=== PATIENT | male | born 1940 | race Caucasian/White ===

== ENCOUNTER 2019-12-04 07:30 | Inpatient (IN) ==
[2019-12-04] MEDS ORDERED: GLUCAGON 1 MG VIAL IM PRN (12:36)
[2019-12-04] MEDS ORDERED: DEXTROSE 10% 250 ML BAG IV PRN (12:36)
[2019-12-04 13:11] LABS: Basophils % 0.4 % (0.0-0.8); Eosinophils # 0.1 10*3/uL (0.0-0.87); Eosinophils % 0.5 % (0.00-10.9); Hematocrit 45.3 VOL% (42.0-52.0); Hemoglobin 14.7 GM/DL (14.0-18.0); Immature Granulocytes % 0.3 %; Immature Granulocytes Absolute 0.03 #; Lymphocytes # 1.7 10*3/uL (1.4-4.0); Lymphocytes % 17.5 % (21.2-54.2); Mean Corpuscular HGB Conc 32.5 GM/DL (32-36); Mean Corpuscular Volume 88.5 FL (87-102); Mean Platelet Volume 10.1 FL (9.6-12.0); Monocytes % 4.3 % (1.7-12.7); Platelet Count 218 T/CUMM (130-400); Red Blood Count 5.12 MC/CUMM (3.8-5.5); Red Cell Distribution Width 12.4 % (9.3-17.3); White Blood Count 9.6 T/CUMM (4-12)
[2019-12-04 13:27] LABS: Albumin 3.6 G/DL (3.4-5.0); Bilirubin,Total 0.6 MG/DL (0.2-1.0); Calcium 9.1 MG/DL (8.5-10.1); Osmolality,Calculated 268.4 MOS/KG (273-304); Total Protein 7.5 G/DL (6.4-8.3)
[2019-12-04] MEDS ORDERED: METHOCARBAMOL 500 MG TABLET PO PRN (13:47)
[2019-12-04] MEDS ORDERED: MORPHINE 4 MG/1 ML VIAL IV PRN (13:48)
[2019-12-04] MEDS ORDERED: ZALEPLON 5 MG CAPSULE PO PRN (13:49)
[2019-12-04 13:50] LABS: ABG Base Excess -0.1 MMOL/L (-2.5-2.5); ABG HCO3 24.3 MMOL/L (20-26); ABG Oxygen Saturation 96.8 % (95-100); ABG PCO2 36.3 MM HG (35-48); ABG PH 7.425 (7.35-7.45); ABG PO2 80.8 MM HG (80-95); ABG TCO2 20.2 MMOL/L (23-27)
[2019-12-04] MEDS: CHLORHEXIDINE 4% SOLN 118 ML BOTTLE TOP SCH ×2 (15:43→22:27)
[2019-12-04] MEDS ORDERED: LOPERAMIDE 2 MG CAPSULE PO PRN (21:28)
[2019-12-04] MEDS: CHLORHEXIDINE 0.12% ORAL RINSE 60 ML BOTTLE SWISH/SPIT SCH (22:28)
[2019-12-05] MEDS ORDERED: VANCOMYCIN 1,000 MG VIAL ONE (04:21)
[2019-12-05] MEDS ORDERED: PAPAVERINE 60 MG/2 ML VIAL ONE (04:21)
[2019-12-05] MEDS ORDERED: VANCOMYCIN 500 MG VIAL ONE (04:21)
[2019-12-05] MEDS: CHLORHEXIDINE 4% SOLN 118 ML BOTTLE TOP SCH ×2 (05:30→16:15)
[2019-12-05] MEDS ORDERED: DIAZEPAM 5 MG TABLET PO ONE (06:00)
[2019-12-05] MEDS ORDERED: FAMOTIDINE 20 MG TABLET PO ONE (06:00)
[2019-12-05] MEDS ORDERED: CEFUROXIME INJ 1,500 MG in SYRINGE 1 EACH IV ONE (06:00)
[2019-12-05] MEDS ORDERED: PHENYLEPHRINE DRIP 20 MG/250 ML PREMIX IV ONE (06:10)
[2019-12-05] MEDS ORDERED: HEPARIN/NACL 0.9% 2 UNITS/ML 500 ML IV ONE (06:10)
[2019-12-05] MEDS ORDERED: NITROGLYCERIN DRIP 50 MG/250 ML BOTTLE IV ONE (06:11)
[2019-12-05] MEDS ORDERED: AMINOCAPROIC ACID 5,000 MG/20 ML VIAL ONE (06:11)
[2019-12-05] MEDS ORDERED: SUFentanil 250 MCG/5 ML AMP ONE (06:11)
[2019-12-05] MEDS ORDERED: MIDAZOLAM 10 MG/2 ML VIAL ONE (06:11)
[2019-12-05] MEDS ORDERED: MINERAL OIL/PETROLATUM OPH OINT 3.5 GM TUBE ONE (06:12)
[2019-12-05] MEDS: CHLORHEXIDINE 0.12% ORAL RINSE 60 ML BOTTLE SWISH/SPIT SCH ×3 (06:25→21:44)
[2019-12-05 07:39] LABS: ABG Base Excess -0.7 MMOL/L (-2.5-2.5); ABG HCO3 23.9 MMOL/L (20-26); ABG PCO2 37.4 MM HG (35-48); ABG PH 7.408 (7.35-7.45); ABG TCO2 20.6 MMOL/L (23-27); Glucose Heart Surgery 129 MG/DL (74-106); Hematocrit Heart Surgery 39.9 PERCENT (42-52); Ionized Calcium Arterial 1.17 MMOL/L (1.21-1.46); PCO2 Patient Temp Arterial 37.4 MMHG; PH Patient Temp Arterial 7.408; Patient Temperature 37 CELCIUS; Potassium Heart/CVR 3.6 MMOL/L (3.5-5.1); Sodium Heart/CVR 138 MMOL/L (135-145)
[2019-12-05] MEDS ORDERED: NITROPRUSSIDE 50 MG/2 ML VIAL ONE (08:40)
[2019-12-05] MEDS ORDERED: POTASSIUM CHLORIDE RIDER 100 ML IV ONE (08:40)
[2019-12-05] MEDS ORDERED: CALCIUM CHLORIDE 1,000 MG/10 ML SYRINGE IV ONE (08:40)
[2019-12-05] MEDS ORDERED: SODIUM BICARBONATE 50 MEQ/50 ML VIAL IV ONE ×2 (08:40→12:11)
[2019-12-05] MEDS ORDERED: PHENYLEPHRINE DRIP 40 MG/250 ML PREMIX IV ONE (08:40)
[2019-12-05] MEDS ORDERED: EPINEPHrine 1 MG/10 ML SYRINGE ONE (08:41)
[2019-12-05] MEDS ORDERED: ALBUMIN 5% 12.5 GM/250 ML VIAL IV ONE ×2 (08:42→08:53)
[2019-12-05] MEDS ORDERED: LIDOCAINE 100 MG/5 ML SYRINGE ONE (08:42)
[2019-12-05 08:54] LABS: Amorphous Crystals,Urine Occasional /HPF (Few); Apearance,Urine CLEAR (Clear); Bacteria,Urine Occasional /HPF (Few); Bilirubin,Urine Negative (Negative); Blood, Urine Small mg/dL (Negative); Glucose,Urine (UA) Negative (Negative); Ketones,Urine 20 mg/dL (Negative); Mucus,Urine Occasional /LPF (Occasional); Nitrite,Urine Negative (Negative); Protein,Urine Negative; RBC,Urine 7 /HPF (0-4); Squamous Epithelial Cell,Urine Occasional /HPF (0-10); Urine Color Yellow (Yellow); Urine Specific Gravity 1.016 (1.001-1.035); Urine Urobilinogen < 2.0 EU/DL (0.2-1.0)
[2019-12-05 08:58] LABS: Hematocrit Heart Surgery 32.4 PERCENT (42-52); Hemoglobin Heart Surgery 10.5 G/DL (14.0-18.0); PCO2 Patient Temp Venous 28.8 MM HG; PH Patient Temp Venous 7.496; PO2 Patient Temp Venous 38.9 MM HG; Potassium Heart/CVR 4.1 MMOL/L (3.5-5.1); VBG Base Excess -0.2 MEQ/L (0-4); VBG Oxygen Saturation 86.1 %; VBG PCO2 33.3 MMHG (41-51); VBG PH 7.451; VBG PO2 47.8 MMHG (17-40)
[2019-12-05 09:31] LABS: Hematocrit Heart Surgery 33.5 PERCENT (42-52); Hemoglobin Heart Surgery 10.9 G/DL (14.0-18.0); PCO2 Patient Temp Venous 30.2 MM HG; PH Patient Temp Venous 7.479; PO2 Patient Temp Venous 41.4 MM HG; Potassium Heart/CVR 3.8 MMOL/L (3.5-5.1); VBG Base Excess -0.4 MEQ/L (0-4); VBG Oxygen Saturation 89.1 %; VBG PCO2 36.6 MMHG (41-51); VBG PH 7.42; VBG PO2 54.4 MMHG (17-40)
[2019-12-05 10:04] LABS: Hematocrit Heart Surgery 35.8 PERCENT (42-52); Hemoglobin Heart Surgery 11.6 G/DL (14.0-18.0); PCO2 Patient Temp Venous 30.8 MM HG; PH Patient Temp Venous 7.47; PO2 Patient Temp Venous 43.3 MM HG; Potassium Heart/CVR 3.6 MMOL/L (3.5-5.1); VBG Base Excess -0.6 MEQ/L (0-4); VBG HCO3 23.8 MEQ/L (24-28); VBG Oxygen Saturation 89.9 %; VBG PCO2 37.3 MMHG (41-51); VBG PH 7.411; VBG PO2 56.8 MMHG (17-40)
[2019-12-05 10:32] LABS: Hematocrit Heart Surgery 35.7 PERCENT (42-52); Hemoglobin Heart Surgery 11.6 G/DL (14.0-18.0); PCO2 Patient Temp Venous 32.6 MM HG; PH Patient Temp Venous 7.471; PO2 Patient Temp Venous 45.9 MM HG; Potassium Heart/CVR 3.6 MMOL/L (3.5-5.1); VBG Base Excess 0.7 MEQ/L (0-4); VBG HCO3 24.9 MEQ/L (24-28); VBG Oxygen Saturation 89.8 %; VBG PCO2 37.7 MMHG (41-51); VBG PH 7.427; VBG PO2 56.3 MMHG (17-40)
[2019-12-05 11:00] LABS: Hematocrit Heart Surgery 34.5 PERCENT (42-52); Hemoglobin Heart Surgery 11.2 G/DL (14.0-18.0); PH Patient Temp Venous 7.463; PO2 Patient Temp Venous 45.5 MM HG; Potassium Heart/CVR 3.8 MMOL/L (3.5-5.1); VBG Base Excess 0.4 MEQ/L (0-4); VBG HCO3 24.6 MEQ/L (24-28); VBG Oxygen Saturation 89.4 %; VBG PCO2 38.1 MMHG (41-51); VBG PH 7.419; VBG PO2 55.8 MMHG (17-40)
[2019-12-05] MEDS ORDERED: THROMBIN TOPICAL (RECOMBINANT) 5,000 UNIT VIAL TOP ONE (11:21)
[2019-12-05 11:35] LABS: Hematocrit Heart Surgery 30.9 PERCENT (42-52); PCO2 Patient Temp Venous 34.9 MM HG; PH Patient Temp Venous 7.453; PO2 Patient Temp Venous 41.7 MM HG; Potassium Heart/CVR 4.2 MMOL/L (3.5-5.1); VBG Base Excess 0.8 MEQ/L (0-4); VBG HCO3 24.8 MEQ/L (24-28); VBG Oxygen Saturation 78.8 %; VBG PCO2 34.9 MMHG (41-51); VBG PH 7.453; VBG PO2 41.7 MMHG (17-40)
[2019-12-05] MEDS ORDERED: MANNITOL 100 GM/500 ML BAG IV ONE (12:10)
[2019-12-05] MEDS ORDERED: LIDOCAINE 2% 5 ML VIAL ONE ×2 (12:10→14:16)
[2019-12-05] MEDS ORDERED: ALBUMIN 25% 25 GM/100 ML VIAL IV ONE (12:11)
[2019-12-05] MEDS ORDERED: HEPARIN 10,000 UNIT/10 ML VIAL ONE (12:11)
[2019-12-05] MEDS ORDERED: MAGNESIUM SULFATE 5 GM/10 ML VIAL IV ONE (12:11)
[2019-12-05] MEDS ORDERED: methylPREDNISolone SOD SUC 1,000 MG/8 ML VIAL ONE (12:11)
[2019-12-05] MEDS ORDERED: PROTAMINE SULFATE 250 MG/25 ML VIAL IV ONE (12:11)
[2019-12-05] MEDS ORDERED: FUROSEMIDE 20 MG/2 ML VIAL ONE (12:11)
[2019-12-05] MEDS ORDERED: DEXTROSE 5% KCL 20 MEQ 40 MEQ/2,000 ML BAG IV ONE (12:11)
[2019-12-05 12:12] LABS: ABG Base Excess -2.2 MMOL/L (-2.5-2.5); ABG HCO3 21.7 MMOL/L (20-26); ABG Oxygen Saturation 98.4 % (95-100); ABG PCO2 33.9 MM HG (35-48); ABG PH 7.424 (7.35-7.45); ABG PO2 185.8 MM HG (80-95); ABG TCO2 22.7 MMOL/L (23-27); Glucose Heart Surgery 255 MG/DL (74-106); Hemoglobin Heart Surgery 9.8 G/DL (14.0-18.0); Ionized Calcium Arterial 1.24 MMOL/L (1.21-1.46); PCO2 Patient Temp Arterial 33.9 MMHG; PH Patient Temp Arterial 7.424; PO2 Patient Temp Arterial 185.8 MM HG; Patient Temperature 37 CELCIUS; Potassium Heart/CVR 3.5 MMOL/L (3.5-5.1); Sodium Heart/CVR 138 MMOL/L (135-145)
[2019-12-05] MEDS ORDERED: PROTAMINE SULFATE 50 MG/5 ML VIAL IV ONE ×3 (12:12→13:56)
[2019-12-05] MEDS: PHENYLEPHRINE DRIP 40 MG/250 ML PREMIX IV PRN (14:00)
[2019-12-05] MEDS: LACTATED RINGERS 250 ML IV PRN ×4 (14:00→16:56)
[2019-12-05] MEDS ORDERED: LIDOCAINE 1% 5 ML VIAL ONE (14:16)
[2019-12-05] MEDS ORDERED: CALCIUM CHLORIDE 1,000 MG/10 ML VIAL IV ONE (14:16)
[2019-12-05] MEDS ORDERED: ROCURONIUM 100 MG/10 ML VIAL IV ONE (14:17)
[2019-12-05] MEDS ORDERED: SODIUM CHLORIDE 0.9% 250 ML IV ONE (14:17)
[2019-12-05] MEDS ORDERED: AMIODARONE 150 MG/3 ML VIAL ONE (14:17)
[2019-12-05] MEDS ORDERED: LACTATED RINGERS 2,000 ML IV ONE (14:17)
[2019-12-05] MEDS ORDERED: ETOMIDATE 40 MG/20 ML VIAL IV ONE (14:17)
[2019-12-05] MEDS ORDERED: SODIUM CHLORIDE 0.9% 2,000 ML IV ONE (14:17)
[2019-12-05] MEDS ORDERED: SODIUM CHLORIDE 0.9% 100 ML IV ONE (14:17)
[2019-12-05] MEDS ORDERED: PHENYLEPHRINE 1 MG/10 ML SYRINGE IV ONE (14:17)
[2019-12-05] MEDS ORDERED: ePHEDrine 50 MG/ML VIAL ONE (14:17)
[2019-12-05] MEDS ORDERED: SEVOFLURANE 1 UNIT/15 MINUTE INH ONE (14:18)
[2019-12-05] MEDS ORDERED: MORPHINE 10 MG/1 ML VIAL IV PRN (14:26)
[2019-12-05] MEDS ORDERED: INSULIN REGULAR DRIP 100 ML IV SCH (14:26)
[2019-12-05] MEDS ORDERED: SODIUM CHLORIDE 0.45% 1,000 ML IV SCH ×2 (14:26)
[2019-12-05] MEDS ORDERED: ACETAMINOPHEN 650 MG SUPP RECTAL PRN (14:26)
[2019-12-05] MEDS ORDERED: ONDANSETRON 4 MG/2 ML VIAL IV PRN (14:26)
[2019-12-05] MEDS ORDERED: NITROPRUSSIDE 100 MG in DEXTROSE 5% 250 ML IV PRN (14:26)
[2019-12-05] MEDS ORDERED: VECURONIUM 10 MG VIAL IV PRN ×2 (14:26)
[2019-12-05] MEDS ORDERED: MAGNESIUM SULF RIDER 2 GM in PREMIX 1 EACH IV PRN (14:26)
[2019-12-05] MEDS ORDERED: MAGNESIUM SULF RIDER 4 GM in PREMIX 1 EACH IV PRN (14:26)
[2019-12-05] MEDS ORDERED: DEXTROSE 10% 250 ML BAG IV PRN ×2 (14:26)
[2019-12-05] MEDS ORDERED: INSULIN REGULAR 100 UNIT/ML IV ONE (14:26)
[2019-12-05] MEDS ORDERED: CALCIUM CHLORIDE 1,000 MG/10 ML SYRINGE IV PRN (14:26)
[2019-12-05] MEDS ORDERED: POTASSIUM CHLORIDE RIDER 10 MEQ in PREMIX 1 EACH IV PRN (14:26)
[2019-12-05] MEDS ORDERED: INSULIN REGULAR 100 UNIT/ML IV PRN (14:26)
[2019-12-05] MEDS ORDERED: MIDAZOLAM 10 MG/2 ML VIAL IV PRN (14:26)
[2019-12-05] MEDS ORDERED: CHLORHEXIDINE 4% SOLN 118 ML BOTTLE TOP PRN (14:26)
[2019-12-05] MEDS ORDERED: MIDAZOLAM 2 MG/2 ML VIAL IV PRN (14:26)
[2019-12-05 14:34] LABS: ABG Base Excess -3.9 MMOL/L (-2.5-2.5); ABG HCO3 21.1 MMOL/L (20-26); ABG Oxygen Saturation 99.5 % (95-100); ABG PCO2 36.9 MM HG (35-48); ABG PH 7.363 (7.35-7.45); ABG TCO2 19.4 MMOL/L (23-27); Glucose Heart Surgery 273 MG/DL (74-106); Hematocrit Heart Surgery 27.9 PERCENT (42-52); Potassium Heart/CVR 3.1 MMOL/L (3.5-5.1)
[2019-12-05 14:42] LABS: Basophils % 0.2 % (0.0-0.8); Eosinophils % 0.1 % (0.00-10.9); Hemoglobin 8.7 GM/DL (14.0-18.0); Immature Granulocytes % 0.8 %; Immature Granulocytes Absolute 0.16 #; Lymphocytes # 0.9 10*3/uL (1.4-4.0); Lymphocytes % 4.7 % (21.2-54.2); Mean Corpuscular HGB Conc 31.1 GM/DL (32-36); Mean Corpuscular Volume 92.1 FL (87-102); Mean Platelet Volume 10.3 FL (9.6-12.0); Monocytes % 4.4 % (1.7-12.7); Neutrophils % 89.8 % (38.7-73.9); Platelet Count 208 T/CUMM (130-400); Red Blood Count 3.04 MC/CUMM (3.8-5.5); Red Cell Distribution Width 12.7 % (9.3-17.3); White Blood Count 19.3 T/CUMM (4-12)
[2019-12-05] MEDS: POTASSIUM CHLORIDE RIDER 20 MEQ in PREMIX 1 EACH IV PRN ×5 (14:46→21:42)
[2019-12-05 14:53] LABS: INR 1.2; PT Patient Result 12.9 SECS (9.8-11.9); Partial Thromboplastin Time 29.6 SECS (23.9-33.8)
[2019-12-05 14:59] LABS: CKMB % 6.8 %
[2019-12-05 15:02] LABS: Troponin I 5.37 NG/ML (0.00-0.045)
[2019-12-05 15:06] LABS: Albumin 2.9 G/DL (3.4-5.0); Calcium 9.2 MG/DL (8.5-10.1); Total Protein 5.6 G/DL (6.4-8.3)
[2019-12-05 15:34] LABS: Band Neutrophils 4 % (0-10); Lymphocytes 3 % (20-55); Segmented Neutrophils 92 % (50-85); Total Cells Counted 100
[2019-12-05 15:35] LABS: Hypochromasia Slight; Platelet Estimate Normal
[2019-12-05] MEDS: SODIUM CHLORIDE 0.9% 1,000 ML IV SCH (16:15)
[2019-12-05 16:31] LABS: ABG Base Excess -5.8 MMOL/L (-2.5-2.5); ABG HCO3 19.6 MMOL/L (20-26); ABG Oxygen Saturation 98.7 % (95-100); ABG PCO2 38.5 MM HG (35-48); ABG PH 7.319 (7.35-7.45); ABG TCO2 18.3 MMOL/L (23-27); Glucose Heart Surgery 233 MG/DL (74-106); Hematocrit Heart Surgery 28.8 PERCENT (42-52); Hemoglobin Heart Surgery 9.3 G/DL (14.0-18.0); Potassium Heart/CVR 4.1 MMOL/L (3.5-5.1)
[2019-12-05 17:34] LABS: ABG Base Excess -6.3 MMOL/L (-2.5-2.5); ABG HCO3 19.2 MMOL/L (20-26); ABG Oxygen Saturation 97.7 % (95-100); ABG PCO2 40.1 MM HG (35-48); ABG TCO2 18.1 MMOL/L (23-27); Glucose Heart Surgery 211 MG/DL (74-106); Hematocrit Heart Surgery 30.9 PERCENT (42-52); Potassium Heart/CVR 4.5 MMOL/L (3.5-5.1)
[2019-12-05] MEDS: KETOROLAC 30 MG/1 ML VIAL IV SCH (18:43)
[2019-12-05 19:47] LABS: ABG Base Excess -3.9 MMOL/L (-2.5-2.5); ABG HCO3 21.2 MMOL/L (20-26); ABG Oxygen Saturation 97.2 % (95-100); ABG PCO2 40.8 MM HG (35-48); ABG PH 7.334 (7.35-7.45); ABG PO2 91.5 MM HG (80-95); ABG TCO2 19.7 MMOL/L (23-27); Glucose Heart Surgery 192 MG/DL (74-106); Hemoglobin Heart Surgery 10.7 G/DL (14.0-18.0); Potassium Heart/CVR 4.4 MMOL/L (3.5-5.1)
[2019-12-05] MEDS ORDERED: FUROSEMIDE 40 MG/4 ML VIAL IV ONE (20:32)
[2019-12-05] MEDS: CEFUROXIME INJ 1,500 MG in SYRINGE 1 EACH IV SCH (20:49)
[2019-12-05] MEDS: ALBUMIN 5% 12.5 GM in PREMIX 1 EACH IV PRN (22:16)
[2019-12-05] MEDS: MORPHINE 4 MG/1 ML VIAL IV PRN (22:20)
[2019-12-06 00:10] LABS: ABG Base Excess -1.6 MMOL/L (-2.5-2.5); ABG HCO3 21.8 MMOL/L (20-26); ABG Oxygen Saturation 97.8 % (95-100); ABG PCO2 31.8 MM HG (35-48); ABG PH 7.453 (7.35-7.45); ABG PO2 108.3 MM HG (80-95); ABG TCO2 22.7 MMOL/L (23-27); Glucose Heart Surgery 127 MG/DL (74-106); Hemoglobin Heart Surgery 10.5 G/DL (14.0-18.0)
[2019-12-06] MEDS: KETOROLAC 30 MG/1 ML VIAL IV SCH ×5 (00:27→23:45)
[2019-12-06] MEDS: POTASSIUM CHLORIDE RIDER 20 MEQ in PREMIX 1 EACH IV PRN ×2 (00:30→05:20)
[2019-12-06 01:11] LABS: Troponin I 4.67 NG/ML (0.00-0.045)
[2019-12-06 03:24] LABS: ABG HCO3 25.3 MMOL/L (20-26); ABG PCO2 29.2 MM HG (35-48); ABG PH 7.507 (7.35-7.45); ABG PO2 76.3 MM HG (80-95); ABG TCO2 20.4 MMOL/L (23-27); Glucose Heart Surgery 106 MG/DL (74-106); Hematocrit Heart Surgery 36.4 PERCENT (42-52); Hemoglobin Heart Surgery 11.8 G/DL (14.0-18.0); Potassium Heart/CVR 4.1 MMOL/L (3.5-5.1)
[2019-12-06 04:39] LABS: ABG Base Excess -0.2 MMOL/L (-2.5-2.5); ABG HCO3 21.8 MMOL/L (20-26); ABG Oxygen Saturation 97.1 % (95-100); ABG PCO2 26.9 MM HG (35-48); ABG PH 7.526 (7.35-7.45); ABG PO2 90.6 MM HG (80-95); ABG TCO2 22.6 MMOL/L (23-27); Glucose Heart Surgery 91 MG/DL (74-106); Hemoglobin Heart Surgery 9.9 G/DL (14.0-18.0)
[2019-12-06 05:00] LABS: Bilirubin,Direct 0.15 MG/DL (0.0-0.20); Bilirubin,Total 0.9 MG/DL (0.2-1.0); Calcium 8.8 MG/DL (8.5-10.1); Osmolality,Calculated 289.7 MOS/KG (273-304); Total Protein 5.8 G/DL (6.4-8.3)
[2019-12-06 05:01] LABS: Basophils % 0.2 % (0.0-0.8); Eosinophils # 0.1 10*3/uL (0.0-0.87); Eosinophils % 0.3 % (0.00-10.9); Hematocrit 29.4 VOL% (42.0-52.0); Hemoglobin 9.6 GM/DL (14.0-18.0); Immature Granulocytes % 0.6 %; Immature Granulocytes Absolute 0.11 #; Lymphocytes # 1.2 10*3/uL (1.4-4.0); Lymphocytes % 6.7 % (21.2-54.2); Mean Corpuscular HGB Conc 32.7 GM/DL (32-36); Mean Corpuscular Volume 85.5 FL (87-102); Mean Platelet Volume 11.3 FL (9.6-12.0); Monocytes % 5.5 % (1.7-12.7); Neutrophils % 86.7 % (38.7-73.9); Platelet Count 185 T/CUMM (130-400); Red Blood Count 3.44 MC/CUMM (3.8-5.5); Red Cell Distribution Width 15.6 % (9.3-17.3); White Blood Count 18.4 T/CUMM (4-12)
[2019-12-06 06:19] LABS: ABG Base Excess -1.9 MMOL/L (-2.5-2.5); ABG HCO3 23.3 MMOL/L (20-26); ABG Oxygen Saturation 97.7 % (95-100); ABG PCO2 41.2 MM HG (35-48); ABG PO2 122.9 MM HG (80-95); ABG TCO2 24.5 MMOL/L (23-27); Glucose Heart Surgery 155 MG/DL (74-106); Hemoglobin Heart Surgery 9.9 G/DL (14.0-18.0); Potassium Heart/CVR 4.7 MMOL/L (3.5-5.1)
[2019-12-06] MEDS ORDERED: GLUCAGON 1 MG VIAL IM PRN (07:14)
[2019-12-06] MEDS ORDERED: DEXTROSE 50% 25 GM/50 ML VIAL IV PRN (07:14)
[2019-12-06 09:06] LABS: Troponin I 4.41 NG/ML (0.00-0.045)
[2019-12-06] MEDS: ALBUMIN 5% 12.5 GM in PREMIX 1 EACH IV PRN (09:45)
[2019-12-06] MEDS: ASPIRIN EC 81 MG TABLET PO SCH (09:46)
[2019-12-06] MEDS: SODIUM CHLOR 0.45% KCL 20 MEQ 20 MEQ/1,000 ML BAG IV SCH (09:47)
[2019-12-06] MEDS: INSULIN REGULAR 100 UNIT/ML SUBCUT SCH ×5 (09:49→23:45)
[2019-12-06] MEDS: CHLORHEXIDINE 0.12% ORAL RINSE 60 ML BOTTLE SWISH/SPIT SCH ×2 (09:52→20:40)
[2019-12-06] MEDS: CEFUROXIME INJ 1,500 MG in SYRINGE 1 EACH IV SCH ×2 (09:59→20:40)
[2019-12-06] MEDS ORDERED: LACTATED RINGERS 1,000 ML IV PRN (10:13)
[2019-12-06] MEDS: PHENYLEPHRINE DRIP 40 MG/250 ML PREMIX IV PRN (10:22)
[2019-12-06 14:54] LABS: CKMB % 2.7 %
[2019-12-06 14:55] LABS: Troponin I 3.25 NG/ML (0.00-0.045)
[2019-12-07] MEDS: INSULIN REGULAR 100 UNIT/ML SUBCUT SCH ×6 (04:55→23:46)
[2019-12-07 04:59] LABS: Basophils % 0.1 % (0.0-0.8); Hematocrit 25.4 VOL% (42.0-52.0); Hemoglobin 7.7 GM/DL (14.0-18.0); Immature Granulocytes % 1.3 %; Immature Granulocytes Absolute 0.28 #; Lymphocytes # 0.8 10*3/uL (1.4-4.0); Lymphocytes % 3.9 % (21.2-54.2); Mean Corpuscular HGB Conc 30.3 GM/DL (32-36); Mean Corpuscular Volume 92.7 FL (87-102); Mean Platelet Volume 11.3 FL (9.6-12.0); Monocytes % 4.8 % (1.7-12.7); Neutrophils % 89.9 % (38.7-73.9); Platelet Count 127 T/CUMM (130-400); Red Blood Count 2.74 MC/CUMM (3.8-5.5); Red Cell Distribution Width 15.9 % (9.3-17.3); White Blood Count 21.6 T/CUMM (4-12)
[2019-12-07 05:22] LABS: Alanine Aminotransferase 16 U/L (16-61); Albumin 2.7 G/DL (3.4-5.0); Alkaline Phosphatase 38 U/L (45-117); Aspartate Amino Transferase 30 U/L (0-37); Bilirubin,Direct < 0.100 MG/DL (0.0-0.20); Blood Urea Nitrogen 33 MG/DL (7-18); Calcium 8.1 MG/DL (8.5-10.1); Estimated Glom Filtration Rate 92 ML/MIN; Glucose 150 MG/DL (74-106); Osmolality,Calculated 292.1 MOS/KG (273-304); Total Protein 5.5 G/DL (6.4-8.3)
[2019-12-07] MEDS: ENOXAPARIN 30 MG/0.3 ML SYRINGE SUBCUT SCH (05:52)
[2019-12-07] MEDS: KETOROLAC 30 MG/1 ML VIAL IV SCH ×4 (05:52→23:47)
[2019-12-07] MEDS ORDERED: SODIUM CHLORIDE 0.9% 1,000 ML IV PRN (06:20)
[2019-12-07 07:02] LABS: Band Neutrophils 1 % (0-10); Lymphocytes 1 % (20-55); Segmented Neutrophils 96 % (50-85); Total Cells Counted 100
[2019-12-07 07:04] LABS: Hypochromasia Slight; Microcytosis Slight; Platelet Estimate Normal
[2019-12-07] MEDS: SODIUM CHLOR 0.45% KCL 20 MEQ 20 MEQ/1,000 ML BAG IV SCH (08:06)
[2019-12-07] MEDS: ASPIRIN EC 81 MG TABLET PO SCH (08:06)
[2019-12-07] MEDS: CHLORHEXIDINE 0.12% ORAL RINSE 60 ML BOTTLE SWISH/SPIT SCH ×2 (08:07→20:30)
[2019-12-07] MEDS ORDERED: FUROSEMIDE 40 MG/4 ML VIAL IV ONE ×2 (08:28→11:00)
[2019-12-07 13:15] LABS: Hematocrit 31.6 VOL% (42.0-52.0); Hemoglobin 9.9 GM/DL (14.0-18.0)
[2019-12-07] MEDS: WARFARIN 5 MG TABLET PO SCH (18:05)
[2019-12-08] MEDS: MORPHINE 4 MG/1 ML VIAL IV PRN (02:12)
[2019-12-08 04:03] LABS: Basophils % 0.2 % (0.0-0.8); Eosinophils % 0.1 % (0.00-10.9); Hematocrit 30.3 VOL% (42.0-52.0); Hemoglobin 9.6 GM/DL (14.0-18.0); Immature Granulocytes % 0.6 %; Lymphocytes # 1.7 10*3/uL (1.4-4.0); Mean Corpuscular HGB Conc 31.7 GM/DL (32-36); Mean Corpuscular Volume 89.4 FL (87-102); Mean Platelet Volume 11.6 FL (9.6-12.0); Monocytes % 5.7 % (1.7-12.7); Neutrophils % 83.4 % (38.7-73.9); Platelet Count 131 T/CUMM (130-400); Red Blood Count 3.39 MC/CUMM (3.8-5.5); Red Cell Distribution Width 15.2 % (9.3-17.3); White Blood Count 16.8 T/CUMM (4-12)
[2019-12-08 04:28] LABS: Albumin 2.6 G/DL (3.4-5.0); Bilirubin,Direct 0.18 MG/DL (0.0-0.20); Bilirubin,Total 0.7 MG/DL (0.2-1.0); Calcium 7.9 MG/DL (8.5-10.1); Osmolality,Calculated 288.5 MOS/KG (273-304); Total Protein 5.4 G/DL (6.4-8.3)
[2019-12-08] MEDS: INSULIN REGULAR 100 UNIT/ML SUBCUT SCH ×5 (07:00→22:35)
[2019-12-08] MEDS: ENOXAPARIN 30 MG/0.3 ML SYRINGE SUBCUT SCH (07:01)
[2019-12-08] MEDS: KETOROLAC 30 MG/1 ML VIAL IV SCH ×3 (07:02→17:31)
[2019-12-08] MEDS ORDERED: LACTULOSE 20 GM/30 ML UDCUP PO ONE (08:10)
[2019-12-08] MEDS: SODIUM CHLOR 0.45% KCL 20 MEQ 20 MEQ/1,000 ML BAG IV SCH ×2 (08:29→11:41)
[2019-12-08] MEDS: POLYETHYLENE GLYCOL POWDER 17 GM PACK PO SCH (08:29)
[2019-12-08] MEDS: ASPIRIN EC 81 MG TABLET PO SCH (08:29)
[2019-12-08] MEDS: CHLORHEXIDINE 0.12% ORAL RINSE 60 ML BOTTLE SWISH/SPIT SCH ×2 (10:39→22:43)
[2019-12-08] MEDS ORDERED: ACETAMINOPHEN 325 MG TABLET PO PRN (10:50)
[2019-12-08] MEDS: WARFARIN 5 MG TABLET PO SCH (17:31)
[2019-12-09] MEDS: INSULIN REGULAR 100 UNIT/ML SUBCUT SCH ×3 (00:43→08:14)
[2019-12-09] MEDS: KETOROLAC 30 MG/1 ML VIAL IV SCH ×2 (00:43→06:43)
[2019-12-09 04:11] LABS: Basophils % 0.1 % (0.0-0.8); Eosinophils # 0.1 10*3/uL (0.0-0.87); Eosinophils % 0.5 % (0.00-10.9); Hematocrit 33.9 VOL% (42.0-52.0); Hemoglobin 10.5 GM/DL (14.0-18.0); Immature Granulocytes % 0.6 %; Immature Granulocytes Absolute 0.08 #; Lymphocytes # 1.2 10*3/uL (1.4-4.0); Lymphocytes % 8.7 % (21.2-54.2); Mean Corpuscular Volume 91.9 FL (87-102); Mean Platelet Volume 11.1 FL (9.6-12.0); Monocytes % 6.3 % (1.7-12.7); Neutrophils % 83.8 % (38.7-73.9); Platelet Count 148 T/CUMM (130-400); Red Blood Count 3.69 MC/CUMM (3.8-5.5); Red Cell Distribution Width 14.6 % (9.3-17.3); White Blood Count 13.8 T/CUMM (4-12)
[2019-12-09 04:20] LABS: INR 1.1
[2019-12-09 04:24] LABS: Calcium 8.1 MG/DL (8.5-10.1); Osmolality,Calculated 281.7 MOS/KG (273-304)
[2019-12-09] MEDS: ENOXAPARIN 30 MG/0.3 ML SYRINGE SUBCUT SCH (06:43)
[2019-12-09] MEDS: ASPIRIN EC 81 MG TABLET PO SCH (08:14)
[2019-12-09] MEDS: CHLORHEXIDINE 0.12% ORAL RINSE 60 ML BOTTLE SWISH/SPIT SCH ×2 (08:14→20:30)
[2019-12-09] MEDS: POLYETHYLENE GLYCOL POWDER 17 GM PACK PO SCH (08:14)
[2019-12-09] MEDS ORDERED: MAGNESIUM SULF RIDER 4 GM in PREMIX 1 EACH IV PRN (09:58)
[2019-12-09] MEDS ORDERED: MAGNESIUM SULF RIDER 2 GM in PREMIX 1 EACH IV PRN (09:58)
[2019-12-09] MEDS ORDERED: GLUCAGON 1 MG VIAL IM PRN (09:58)
[2019-12-09] MEDS ORDERED: SODIUM CHLOR 0.45% KCL 20 MEQ 20 MEQ/1,000 ML BAG IV SCH (09:58)
[2019-12-09] MEDS ORDERED: ONDANSETRON 4 MG/2 ML VIAL IV PRN (09:58)
[2019-12-09] MEDS ORDERED: DEXTROSE 10% 250 ML BAG IV PRN (09:58)
[2019-12-09] MEDS ORDERED: ACETAMINOPHEN 325 MG TABLET PO PRN (09:58)
[2019-12-09] MEDS ORDERED: ZALEPLON 5 MG CAPSULE PO PRN (09:58)
[2019-12-09] MEDS ORDERED: ALUMINUM/MAGNES/SIMETH MAX STR 30 ML UDCUP PO PRN (09:58)
[2019-12-09] MEDS ORDERED: POTASSIUM CHLORIDE 20 MEQ TABLET PO PRN (09:58)
[2019-12-09] MEDS: ENOXAPARIN 40 MG/0.4 ML SYRINGE SUBCUT SCH (12:37)
[2019-12-09] MEDS: WARFARIN 5 MG TABLET PO SCH (17:59)
[2019-12-10] MEDS ORDERED: FUROSEMIDE 40 MG/4 ML VIAL IV ONE (06:00)
[2019-12-10 06:57] LABS: Basophils % 0.1 % (0.0-0.8); Eosinophils % 0.2 % (0.00-10.9); Hematocrit 36.3 VOL% (42.0-52.0); Hemoglobin 11.3 GM/DL (14.0-18.0); Immature Granulocytes % 0.6 %; Immature Granulocytes Absolute 0.09 #; Lymphocytes # 1.2 10*3/uL (1.4-4.0); Lymphocytes % 7.7 % (21.2-54.2); Mean Corpuscular HGB Conc 31.1 GM/DL (32-36); Mean Platelet Volume 11.1 FL (9.6-12.0); Monocytes % 6.4 % (1.7-12.7); Platelet Count 217 T/CUMM (130-400); Red Blood Count 3.99 MC/CUMM (3.8-5.5); Red Cell Distribution Width 14.2 % (9.3-17.3); White Blood Count 15.7 T/CUMM (4-12)
[2019-12-10 07:27] LABS: Calcium 8.4 MG/DL (8.5-10.1); Osmolality,Calculated 268.5 MOS/KG (273-304)
[2019-12-10 07:35] LABS: Alanine Aminotransferase 21 U/L (16-61); Albumin 2.7 G/DL (3.4-5.0); Alkaline Phosphatase 61 U/L (45-117); Aspartate Amino Transferase 14 U/L (0-37); Bilirubin,Indirect 0.6 MG/DL (0.0-1.0); Blood Urea Nitrogen 24 MG/DL (7-18); Estimated Glom Filtration Rate 131 ML/MIN; Glucose 111 MG/DL (74-106); Osmolality,Calculated 268.5 MOS/KG (273-304); Total Protein 5.5 G/DL (6.4-8.3)
[2019-12-10 07:37] LABS: Troponin I 0.597 NG/ML (0.00-0.045)
[2019-12-10 08:14] LABS: INR 1.4; PT Patient Result 14.3 SECS (9.8-11.9)
[2019-12-10] MEDS: CHLORHEXIDINE 0.12% ORAL RINSE 60 ML BOTTLE SWISH/SPIT SCH ×2 (10:33→22:13)
[2019-12-10] MEDS: PANTOPRAZOLE 40 MG TABLET PO SCH (10:35)
[2019-12-10] MEDS: ASPIRIN EC 81 MG TABLET PO SCH (10:35)
[2019-12-10] MEDS: FERROUS SULFATE 325 MG TABLET PO SCH (10:36)
[2019-12-10] MEDS: DOCUSATE SODIUM 100 MG CAPSULE PO SCH (10:36)
[2019-12-10] MEDS: methylPREDNISolone SOD SUC 40 MG/1 ML VIAL IV SCH ×2 (10:45→22:13)
[2019-12-10] MEDS: ENOXAPARIN 40 MG/0.4 ML SYRINGE SUBCUT SCH (11:18)
[2019-12-10] MEDS ORDERED: ALUMINUM/MAGNES/SIMETH MAX STR 30 ML UDCUP PO ONE (11:57)
[2019-12-10] MEDS: WARFARIN 5 MG TABLET PO SCH (17:45)
[2019-12-11] MEDS: oxyCODONE/ACETAMINOPHEN 5-325 MG TABLET PO PRN (02:18)
[2019-12-11 05:34] LABS: Basophils % 0.1 % (0.0-0.8); Hematocrit 35.8 VOL% (42.0-52.0); Hemoglobin 11.7 GM/DL (14.0-18.0); INR 1.7; Immature Granulocytes % 0.6 %; Immature Granulocytes Absolute 0.09 #; Lymphocytes % 6.1 % (21.2-54.2); Mean Corpuscular HGB Conc 32.7 GM/DL (32-36); Mean Corpuscular Volume 87.5 FL (87-102); Monocytes % 3.6 % (1.7-12.7); Neutrophils % 89.6 % (38.7-73.9); PT Patient Result 18.2 SECS (9.8-11.9); Platelet Count 257 T/CUMM (130-400); Red Blood Count 4.09 MC/CUMM (3.8-5.5)
[2019-12-11 06:01] LABS: Alanine Aminotransferase 18 U/L (16-61); Albumin 2.6 G/DL (3.4-5.0); Alkaline Phosphatase 66 U/L (45-117); Aspartate Amino Transferase 16 U/L (0-37); Bilirubin,Indirect 0.4 MG/DL (0.0-1.0); Blood Urea Nitrogen 29 MG/DL (7-18); Calcium 8.4 MG/DL (8.5-10.1); Estimated Glom Filtration Rate 111 ML/MIN; Glucose 146 MG/DL (74-106); Osmolality,Calculated 268.8 MOS/KG (273-304); Total Protein 6.1 G/DL (6.4-8.3)
[2019-12-11 06:03] LABS: Troponin I 0.367 NG/ML (0.00-0.045)
[2019-12-11 07:06] LABS: Calcium 8.6 MG/DL (8.5-10.1); Osmolality,Calculated 266.9 MOS/KG (273-304)
[2019-12-11] MEDS: ASPIRIN EC 81 MG TABLET PO SCH (09:51)
[2019-12-11] MEDS: PANTOPRAZOLE 40 MG TABLET PO SCH (09:51)
[2019-12-11] MEDS: DOCUSATE SODIUM 100 MG CAPSULE PO SCH (09:51)
[2019-12-11] MEDS: FERROUS SULFATE 325 MG TABLET PO SCH (09:51)
[2019-12-11] MEDS: methylPREDNISolone SOD SUC 40 MG/1 ML VIAL IV SCH ×2 (09:51→21:21)
[2019-12-11] MEDS: CHLORHEXIDINE 0.12% ORAL RINSE 60 ML BOTTLE SWISH/SPIT SCH ×2 (09:52→21:21)
[2019-12-11] MEDS: LOSARTAN 25 MG TABLET PO SCH (10:00)
[2019-12-11] MEDS: MAGNESIUM HYDROXIDE SUSP 30 ML UDCUP PO PRN (12:49)
[2019-12-11] MEDS: ENOXAPARIN 40 MG/0.4 ML SYRINGE SUBCUT SCH (12:49)
[2019-12-11] MEDS: WARFARIN 5 MG TABLET PO SCH (17:45)
[2019-12-12 06:17] LABS: Basophils % 0.1 % (0.0-0.8); Hemoglobin 11.2 GM/DL (14.0-18.0); Immature Granulocytes % 0.7 %; Immature Granulocytes Absolute 0.12 #; Lymphocytes % 5.3 % (21.2-54.2); Mean Corpuscular HGB Conc 32.9 GM/DL (32-36); Mean Corpuscular Volume 87.4 FL (87-102); Mean Platelet Volume 10.7 FL (9.6-12.0); Monocytes % 4.9 % (1.7-12.7); Platelet Count 305 T/CUMM (130-400); Red Blood Count 3.89 MC/CUMM (3.8-5.5); Red Cell Distribution Width 14.2 % (9.3-17.3); White Blood Count 18.2 T/CUMM (4-12)
[2019-12-12 06:27] LABS: INR 1.9; PT Patient Result 19.8 SECS (9.8-11.9)
[2019-12-12 06:36] LABS: Calcium 8.6 MG/DL (8.5-10.1); Osmolality,Calculated 279.5 MOS/KG (273-304)
[2019-12-12] MEDS: PANTOPRAZOLE 40 MG TABLET PO SCH (08:32)
[2019-12-12] MEDS: FERROUS SULFATE 325 MG TABLET PO SCH (08:32)
[2019-12-12] MEDS: methylPREDNISolone SOD SUC 40 MG/1 ML VIAL IV SCH ×2 (08:32→22:13)
[2019-12-12] MEDS: LOSARTAN 25 MG TABLET PO SCH (08:32)
[2019-12-12] MEDS: ASPIRIN EC 81 MG TABLET PO SCH (08:32)
[2019-12-12] MEDS: DOCUSATE SODIUM 100 MG CAPSULE PO SCH (08:32)
[2019-12-12] MEDS: CHLORHEXIDINE 0.12% ORAL RINSE 60 ML BOTTLE SWISH/SPIT SCH ×2 (08:35→22:25)
[2019-12-12] MEDS: WARFARIN 5 MG TABLET PO SCH (18:16)
[2019-12-12] MEDS: MAGNESIUM HYDROXIDE SUSP 30 ML UDCUP PO PRN (20:08)
[2019-12-13 06:31] LABS: Basophils % 0.1 % (0.0-0.8); Hematocrit 34.5 VOL% (42.0-52.0); Immature Granulocytes Absolute 0.19 #; Lymphocytes % 5.3 % (21.2-54.2); Mean Corpuscular HGB Conc 31.9 GM/DL (32-36); Mean Corpuscular Volume 89.8 FL (87-102); Mean Platelet Volume 10.4 FL (9.6-12.0); Neutrophils % 86.6 % (38.7-73.9); Platelet Count 304 T/CUMM (130-400); Red Blood Count 3.84 MC/CUMM (3.8-5.5); Red Cell Distribution Width 14.1 % (9.3-17.3); White Blood Count 18.5 T/CUMM (4-12)
[2019-12-13 06:46] LABS: INR 1.8; PT Patient Result 18.7 SECS (9.8-11.9)
[2019-12-13 07:13] LABS: Alanine Aminotransferase 20 U/L (16-61); Albumin 2.7 G/DL (3.4-5.0); Alkaline Phosphatase 57 U/L (45-117); Aspartate Amino Transferase 15 U/L (0-37); Bilirubin,Indirect 0.5 MG/DL (0.0-1.0); Blood Urea Nitrogen 42 MG/DL (7-18); Calcium 8.4 MG/DL (8.5-10.1); Estimated Glom Filtration Rate 105 ML/MIN; Glucose 167 MG/DL (74-106); Osmolality,Calculated 276.7 MOS/KG (273-304); Total Protein 5.6 G/DL (6.4-8.3); Troponin I 0.198 NG/ML (0.00-0.045)
[2019-12-13] MEDS: FERROUS SULFATE 325 MG TABLET PO SCH (08:30)
[2019-12-13] MEDS: ASPIRIN EC 81 MG TABLET PO SCH (08:30)
[2019-12-13] MEDS: PANTOPRAZOLE 40 MG TABLET PO SCH (08:30)
[2019-12-13] MEDS: methylPREDNISolone SOD SUC 40 MG/1 ML VIAL IV SCH (08:30)
[2019-12-13] MEDS: LOSARTAN 25 MG TABLET PO SCH (08:30)
[2019-12-13] MEDS: DOCUSATE SODIUM 100 MG CAPSULE PO SCH (08:30)
[2019-12-13] MEDS: CHLORHEXIDINE 0.12% ORAL RINSE 60 ML BOTTLE SWISH/SPIT SCH ×2 (08:31→22:21)
[2019-12-13] MEDS: WARFARIN 5 MG TABLET PO SCH (17:38)
[2019-12-13] MEDS: oxyCODONE/ACETAMINOPHEN 5-325 MG TABLET PO PRN ×2 (17:40→22:18)
[2019-12-13] MEDS: ASCORBIC ACID 500 MG TABLET PO SCH (22:17)
[2019-12-14 05:51] LABS: Basophils % 0.1 % (0.0-0.8); Eosinophils % 0.1 % (0.00-10.9); Hematocrit 33.8 VOL% (42.0-52.0); Hemoglobin 10.6 GM/DL (14.0-18.0); Immature Granulocytes % 0.9 %; Immature Granulocytes Absolute 0.13 #; Lymphocytes # 1.8 10*3/uL (1.4-4.0); Lymphocytes % 11.8 % (21.2-54.2); Mean Corpuscular HGB Conc 31.4 GM/DL (32-36); Mean Corpuscular Volume 89.9 FL (87-102); Mean Platelet Volume 10.8 FL (9.6-12.0); Monocytes % 8.5 % (1.7-12.7); Neutrophils % 78.6 % (38.7-73.9); Platelet Count 279 T/CUMM (130-400); Red Blood Count 3.76 MC/CUMM (3.8-5.5); White Blood Count 15.2 T/CUMM (4-12)
[2019-12-14 05:52] LABS: INR 1.7; PT Patient Result 17.9 SECS (9.8-11.9)
[2019-12-14 06:12] LABS: Calcium 8.3 MG/DL (8.5-10.1); Osmolality,Calculated 272.4 MOS/KG (273-304)
[2019-12-14 06:20] LABS: Alanine Aminotransferase 20 U/L (16-61); Albumin 2.6 G/DL (3.4-5.0); Alkaline Phosphatase 53 U/L (45-117); Aspartate Amino Transferase 15 U/L (0-37); Bilirubin,Indirect 0.5 MG/DL (0.0-1.0); Blood Urea Nitrogen 31 MG/DL (7-18); Calcium 8.3 MG/DL (8.5-10.1); Estimated Glom Filtration Rate 112 ML/MIN; Glucose 102 MG/DL (74-106); Osmolality,Calculated 270.5 MOS/KG (273-304); Total Protein 5.4 G/DL (6.4-8.3)
[2019-12-14 06:39] LABS: Troponin I 0.197 NG/ML (0.00-0.045)
[2019-12-14] MEDS: DOCUSATE SODIUM 100 MG CAPSULE PO SCH (09:28)
[2019-12-14] MEDS: PANTOPRAZOLE 40 MG TABLET PO SCH (09:28)
[2019-12-14] MEDS: LOSARTAN 25 MG TABLET PO SCH (09:28)
[2019-12-14] MEDS: METOPROLOL SUCCINATE XL 25 MG TABLET PO SCH (09:28)
[2019-12-14] MEDS: ASPIRIN EC 81 MG TABLET PO SCH (09:28)
[2019-12-14] MEDS: ASCORBIC ACID 500 MG TABLET PO SCH ×2 (09:28→21:32)
[2019-12-14] MEDS: methylPREDNISolone SOD SUC 40 MG/1 ML VIAL IV SCH (09:29)
[2019-12-14] MEDS: FUROSEMIDE 20 MG TABLET PO SCH (09:29)
[2019-12-14] MEDS: FERROUS SULFATE 325 MG TABLET PO SCH (09:29)
[2019-12-14] MEDS: CHLORHEXIDINE 0.12% ORAL RINSE 60 ML BOTTLE SWISH/SPIT SCH ×2 (09:35→21:32)
[2019-12-14] MEDS: WARFARIN 7.5 MG TABLET PO SCH (17:15)
[2019-12-14] MEDS: MAGNESIUM HYDROXIDE SUSP 30 ML UDCUP PO PRN (17:15)
[2019-12-14] MEDS: ROSUVASTATIN 20 MG TABLET PO SCH (21:32)
[2019-12-15 05:29] LABS: Basophils % 0.1 % (0.0-0.8); Eosinophils # 0.1 10*3/uL (0.0-0.87); Eosinophils % 0.5 % (0.00-10.9); Immature Granulocytes Absolute 0.14 #; Lymphocytes # 1.7 10*3/uL (1.4-4.0); Lymphocytes % 11.8 % (21.2-54.2); Mean Corpuscular HGB Conc 31.4 GM/DL (32-36); Mean Corpuscular Volume 89.5 FL (87-102); Mean Platelet Volume 10.4 FL (9.6-12.0); Monocytes % 6.7 % (1.7-12.7); Neutrophils % 79.9 % (38.7-73.9); Platelet Count 271 T/CUMM (130-400); Red Blood Count 3.91 MC/CUMM (3.8-5.5); Red Cell Distribution Width 13.9 % (9.3-17.3); White Blood Count 14.4 T/CUMM (4-12)
[2019-12-15 06:20] LABS: Calcium 8.2 MG/DL (8.5-10.1); Osmolality,Calculated 270.4 MOS/KG (273-304)
[2019-12-15 06:30] LABS: INR 1.7; PT Patient Result 17.8 SECS (9.8-11.9)
[2019-12-15] MEDS: DOCUSATE SODIUM 100 MG CAPSULE PO SCH (08:44)
[2019-12-15] MEDS: ASPIRIN EC 81 MG TABLET PO SCH (08:45)
[2019-12-15] MEDS: LOSARTAN 25 MG TABLET PO SCH (08:46)
[2019-12-15] MEDS: methylPREDNISolone SOD SUC 40 MG/1 ML VIAL IV SCH (08:47)
[2019-12-15] MEDS: FERROUS SULFATE 325 MG TABLET PO SCH (08:49)
[2019-12-15] MEDS: POTASSIUM CHLORIDE 20 MEQ TABLET PO SCH (08:50)
[2019-12-15] MEDS: PANTOPRAZOLE 40 MG TABLET PO SCH (08:50)
[2019-12-15] MEDS: ASCORBIC ACID 500 MG TABLET PO SCH ×2 (08:50→21:01)
[2019-12-15] MEDS: METOPROLOL SUCCINATE XL 25 MG TABLET PO SCH (08:50)
[2019-12-15] MEDS: FUROSEMIDE 20 MG TABLET PO SCH (08:50)
[2019-12-15] MEDS: CHLORHEXIDINE 0.12% ORAL RINSE 60 ML BOTTLE SWISH/SPIT SCH ×2 (09:58→21:06)
[2019-12-15] MEDS ORDERED: WARFARIN 4 MG TABLET PO ONE (14:00)
[2019-12-15] MEDS: WARFARIN 7.5 MG TABLET PO SCH (17:11)
[2019-12-15] MEDS: MAGNESIUM HYDROXIDE SUSP 30 ML UDCUP PO PRN (18:23)
[2019-12-15] MEDS: ROSUVASTATIN 20 MG TABLET PO SCH (21:01)
[2019-12-16 06:31] LABS: Basophils % 0.2 % (0.0-0.8); Eosinophils # 0.1 10*3/uL (0.0-0.87); Eosinophils % 0.7 % (0.00-10.9); Hematocrit 34.9 VOL% (42.0-52.0); Hemoglobin 11.3 GM/DL (14.0-18.0); Immature Granulocytes % 0.9 %; Immature Granulocytes Absolute 0.17 #; Lymphocytes # 1.7 10*3/uL (1.4-4.0); Lymphocytes % 8.6 % (21.2-54.2); Mean Corpuscular HGB Conc 32.4 GM/DL (32-36); Mean Corpuscular Volume 88.6 FL (87-102); Mean Platelet Volume 11.1 FL (9.6-12.0); Neutrophils % 83.6 % (38.7-73.9); Platelet Count 268 T/CUMM (130-400); Red Blood Count 3.94 MC/CUMM (3.8-5.5); Red Cell Distribution Width 14.1 % (9.3-17.3)
[2019-12-16 06:39] LABS: Calcium 8.2 MG/DL (8.5-10.1)
[2019-12-16 07:00] LABS: INR 2.5; PT Patient Result 25.3 SECS (9.8-11.9)
[2019-12-16] MEDS ORDERED: LACTULOSE 20 GM/30 ML UDCUP PO PRN (08:30)
[2019-12-16] MEDS: POLYETHYLENE GLYCOL POWDER 17 GM PACK PO SCH (09:24)
[2019-12-16] MEDS: METOPROLOL SUCCINATE XL 25 MG TABLET PO SCH (09:25)
[2019-12-16] MEDS: ASPIRIN EC 81 MG TABLET PO SCH (09:25)
[2019-12-16] MEDS: DOCUSATE SODIUM 100 MG CAPSULE PO SCH (09:25)
[2019-12-16] MEDS: POTASSIUM CHLORIDE 20 MEQ TABLET PO SCH (09:25)
[2019-12-16] MEDS: ASCORBIC ACID 500 MG TABLET PO SCH ×2 (09:26→21:06)
[2019-12-16] MEDS: FUROSEMIDE 20 MG TABLET PO SCH (09:26)
[2019-12-16] MEDS: FERROUS SULFATE 325 MG TABLET PO SCH (09:26)
[2019-12-16] MEDS: LOSARTAN 25 MG TABLET PO SCH (09:26)
[2019-12-16] MEDS: PANTOPRAZOLE 40 MG TABLET PO SCH (09:26)
[2019-12-16] MEDS: CHLORHEXIDINE 0.12% ORAL RINSE 60 ML BOTTLE SWISH/SPIT SCH ×2 (09:32→21:06)
[2019-12-16] MEDS: methylPREDNISolone SOD SUC 40 MG/1 ML VIAL IV SCH (09:32)
[2019-12-16] MEDS: WARFARIN 7.5 MG TABLET PO SCH (17:31)
[2019-12-16] MEDS: ROSUVASTATIN 20 MG TABLET PO SCH (21:07)
[2019-12-17 05:44] LABS: Basophils % 0.1 % (0.0-0.8); Eosinophils # 0.2 10*3/uL (0.0-0.87); Eosinophils % 0.6 % (0.00-10.9); Hematocrit 35.3 VOL% (42.0-52.0); Immature Granulocytes % 0.9 %; Immature Granulocytes Absolute 0.24 #; Lymphocytes % 7.8 % (21.2-54.2); Mean Corpuscular HGB Conc 31.2 GM/DL (32-36); Monocytes % 4.4 % (1.7-12.7); Neutrophils % 86.2 % (38.7-73.9); Platelet Count 286 T/CUMM (130-400); Red Blood Count 3.88 MC/CUMM (3.8-5.5); Red Cell Distribution Width 14.3 % (9.3-17.3); White Blood Count 25.5 T/CUMM (4-12)
[2019-12-17 06:09] LABS: Calcium 8.3 MG/DL (8.5-10.1); Osmolality,Calculated 278.1 MOS/KG (273-304)
[2019-12-17 06:19] LABS: Anisocytosis 1+; Hypochromasia Slight; Platelet Estimate Normal
[2019-12-17 06:20] LABS: Macrocytosis Slight
[2019-12-17 06:59] LABS: INR 2.8
[2019-12-17 07:04] LABS: PT Patient Result 28.2 SECS (9.8-11.9)
[2019-12-17] MEDS: methylPREDNISolone SOD SUC 40 MG/1 ML VIAL IV SCH (09:09)
[2019-12-17] MEDS: DOCUSATE SODIUM 100 MG CAPSULE PO SCH (09:09)
[2019-12-17] MEDS: ASCORBIC ACID 500 MG TABLET PO SCH (09:10)
[2019-12-17] MEDS: FERROUS SULFATE 325 MG TABLET PO SCH (09:10)
[2019-12-17] MEDS: FUROSEMIDE 20 MG TABLET PO SCH (09:10)
[2019-12-17] MEDS: ASPIRIN EC 81 MG TABLET PO SCH (09:10)
[2019-12-17] MEDS: METOPROLOL SUCCINATE XL 25 MG TABLET PO SCH (09:10)
[2019-12-17] MEDS: LOSARTAN 25 MG TABLET PO SCH (09:10)
[2019-12-17] MEDS: PANTOPRAZOLE 40 MG TABLET PO SCH (09:10)
[2019-12-17] MEDS: POTASSIUM CHLORIDE 20 MEQ TABLET PO SCH (09:10)
[2019-12-17] MEDS: CHLORHEXIDINE 0.12% ORAL RINSE 60 ML BOTTLE SWISH/SPIT SCH (09:11)
[2019-12-17] MEDS: POLYETHYLENE GLYCOL POWDER 17 GM PACK PO SCH (09:11)
[2019-12-17 11:50] VITALS: BP 116/73
[2019-12-17] MEDS ORDERED: WARFARIN 5 MG TABLET PO SCH (18:00)
== END 2019-12-17 16:15 | disposition swing bed (61) | DRG 220 ==
LOC: N.TELES 11:21 → N.CVR 12-05 13:19 → N.ICU 12-06 11:57 → N.TELES 12-09 09:35
PROC: CABGAVR (ICD-10-PCS; 2019-12-05 06:45)